=== PATIENT | male | born 2000 | race Caucasian/White ===

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

== ENCOUNTER 2023-02-22 11:17 | Emergency (ER) | payer BC, SELFPAY ==
[2023-02-22 11:18] VITALS: BP 134/91; PULSE 107; RESP 18; TEMP 35.9; O2SAT 95; BMI 24.0
--- NOTE | 2023-02-22 11:36 | EX.ED.DYSGE1 ---
HPI History of Present Illness Chief Complaint: Abd Pain Informant: patient Narrative Narrative: 22-year-old male presenting for an infection in his umbilicus. Started less than a week ago, seemingly spontaneously without injury or any other obvious etiology, redness and soreness in his bellybutton along with a white-green discharge. He attends the local college, he was seen at [facility] and started on Bactrim. He states today is the fourth day he has been on it, and he has seen improvement with less discharge now just a little yellow and crusty, and less redness/pain. No vomiting unless he chokes on pills he is trying to swallow, normal bowel movements. Never had any abdominal surgery. Patient is the only history provider; he states that he was sent here today to make sure that he does not have a strangulated hernia. [facility] Medical History Anxiety Depression History of hormone replacement therapy SVT (supraventricular tachycardia) Home Medications Abilify 12/30/20 [History Last Taken Unknown] Lamictal 12/30/20 [History Last Taken Unknown] TESTERONE 12/30/20 [History Last Taken Unknown] hydroxyzine HCl 12/30/20 [History Last Taken Unknown] Allergy/AdvReac Type Severity Reaction Status Date / Time No Known Allergies Allergy Verified 12/30/20 10:37 Surgical History History of bilateral breast reduction surgery Social History Smoking Status: Never smoker ROS ROS ED Constitutional Constitutional ED: Denies body ache(s), chills, fatigue or fever(s) Gastrointestinal Gastrointestinal: Reports abdominal pain; Denies nausea or vomiting Musculoskeletal Musculoskeletal: Denies back pain or neck pain Integumentary Reports abscess; Denies rash EXAM Physical Exam Const Vital Signs: 02/22/23 11:18 02/22/23 11:37 Temperature 96.7 F L Temperature Source Temporal Pulse Rate 107 H 83 Respiratory Rate 18 18 Blood Pressure 134/91 H 111/69 Blood Pressure Mean 105 83 Pulse Ox 95 96 Oxygen Delivery Method Room Air Positive well nourished and well developed General Appearance ED: well developed and NAD HEENT Reports moist mucous membranes Eyes PERRL and EOMs intact bilaterally Neck no lymphadenopathy and supple Resp normal respiratory effort and clear to auscultation bilaterally GI normal to inspection, nondistended, normoactive bowel sounds GI Narrative: Mildly tender at very small umbilical abscess deep within the umbilicus, approximately 1-2 mm in diameter, barely visible. This is mildly tender but there is no other area that is tenderness I am not able to express purulent material from the area. Rest of the abdomen is very benign. There is no significant surrounding cellulitis around the umbilicus. There is no hernia here. MDM MDM MDM Narrative Medical decision making narrative: Patient agrees that since he has been on Bactrim for the last 3 to 4 days, this has been improving as has the discharge. The small area of question deep within the umbilicus is extremely small. Since he actually has active discharge that is improving, my recommendation is to continue the antibiotic and avoid incising this area at this time. If he finishes the full 10-day course of Bactrim, which he is not even residential through, and he has persistence, I think reevaluating him at that time would be extremely reasonable and he is in agreement with all of that. There are no symptoms of strangulation, nor does have any findings of a hernia here. He states he had an ultrasound as an outpatient at [facility] yesterday, and is waiting on the results, I assume this was to evaluate for hernia. I do not have access to that study at this time. Discharge Plan Triage Chief Complaint: Abd Pain Other Complaint: Cellulitis Wound Check ED Provider: Ezra Hardy Dx/Rx/DC Orders Clinical Impression: Cutaneous abscess of umbilicus Instructions: ED Abscess Antibiotic Treatment Only Prescriptions: No Action Abilify Lamictal TESTERONE hydroxyzine HCl Primary Care Provider: Care Physician,No Primary Referrals: [facility] [Group of Physicians] - Care Physician,No Primary [Primary Care Provider] - Disposition Disposition: Home, Self Care Discharge Date/Time: 02/22/23 12:23
[2023-02-22 11:37] VITALS: BP 111/69; PULSE 83; RESP 18; O2SAT 96
== END 2023-02-22 12:23 | disposition home or self-care (01) ==
PROVIDERS: Emergency Provider Emergency Medicine; Visit Provider Emergency Medicine
DX: L02.216 Cutaneous abscess of umbilicus (principal)
CPT/HCPCS: 99283

== ENCOUNTER 2023-12-03 08:23 | Emergency (ER) | payer BC, SELFPAY ==
[2023-12-03 08:24] VITALS: BP 150/98; PULSE 98; RESP 18; TEMP 36.8; O2SAT 100
[2023-12-03 08:27] VITALS: BMI 22.1
--- NOTE | 2023-12-03 08:28 | ED.VIS.CHEST ---
HPI History of Present Illness Chief Complaint: Chest Pain [facility] Medical History Anxiety Depression History of hormone replacement therapy SVT (supraventricular tachycardia) Home Medications ?Medication ?Instructions ?Recorded ?Last Taken ?Type Abilify 12/30/20 Unknown History Lamictal 12/30/20 Unknown History TESTERONE 12/30/20 Unknown History hydroxyzine HCl 12/30/20 Unknown History Allergy/AdvReac Type Severity Reaction Status Date / Time No Known Allergies Allergy Verified 12/30/20 10:37 Surgical History History of bilateral breast reduction surgery Social History Smoking Status: Never smoker EXAM Physical Exam Const Vital Signs: 12/03/23 08:24 12/03/23 08:42 12/03/23 09:07 Temperature 98.3 F Temperature Source Oral Pulse Rate 98 Respiratory Rate 18 Respiratory Effort Normal Non-Labored Blood Pressure 150/98 H Blood Pressure Mean 115 Pulse Ox 100 Oxygen Delivery Method Room Air Room Air 12/03/23 11:31 Temperature Temperature Source Pulse Rate 86 Respiratory Rate 16 Respiratory Effort Blood Pressure 114/75 Blood Pressure Mean 88 Pulse Ox 96 Oxygen Delivery Method Room Air MDM MDM MDM Narrative Medical decision making narrative: HISTORY OF PRESENT ILLNESS: 23-year-old male presents with chest pain. Notes left-sided chest pain started yesterday morning. Patient notes pain is exertional, is worse with a deep breath, worse with lying flat. Patient endorses history of myocarditis after flu shot. Denies any recent vaccinations. Denies cough fever chills. Denies lower extremity swelling. Denies any VTE risk factors (the patient denies recent surgery in the last 4 weeks or immobilization in the last 3 days, denies previous diagnosis of DVT or PE, hemoptysis, unilateral leg swelling or malignancy with treatment the last 6 months or palliative. No estrogen use noted.) Endorses testosterone use for gender affirming care. Patient denies sudden onset of pain, no tearing sensation, no migratory symptoms, no new numbness, weakness or loss of sensation. Patient denies family history or personal history of Connective tissue disorders (Marfan's Syndrome, Gregory Danlos etc). Denies any volume loss such as diarrhea or vomiting. Denies any bleeding diathesis such as hemoptysis melena or hematochezia. REVIEW OF SYSTEMS: Pertinent positives: Chest pain Pertinent negatives: Syncope, leg swelling, fever, cough, vomiting, diarrhea PHYSICAL EXAM: Nursing triage notes reviewed, Vital signs reviewed Constitutional: please see mdm HENT: MMM Eyes: Pupils equal round and reactive to light, Extraocular muscles intact Neck: No stridor, no JVD, full neck ROM Lungs: Clear to auscultation, No wheezing or rales. No increased work of breathing, no conversational dyspnea, no accessory muscle use, no nasal flaring. No respiratory distress noted Heart: Regular rate and rhythm, No murmurs, No rubs and No gallops, 2+ distal pulses (radial, femoral, posterior tibial) in all extremities Abdomen: Soft, there is no tenderness, rigidity, rebound or guarding, no obvious peritoneal signs, no palpable pulsatile abdominal masses, no auscultated abdominal bruit : No CVAT Extremities: No edema Neuro: No focal neurological deficits, cranial nerves II through XII intact, 5/5 strength in all extremities. Intact sensation to light touch in all extremities, 2+ reflexes bilateral patella tendons. Normal gait. No ataxia. Skin: No rash or lesions noted MEDICAL DECISION MAKING: Chief Complaint: Chest pain External records reviewed: Imaging reviewed: Prior x-ray reviewed from 2020 showed a normal examination x-ray specifically no pneumothorax, normal heart size, normal aortic arch and descending thoracic aorta normal ribs Factors affecting care: anxiety SVT, depression, Social determinants of health: none History obtained from others: none Consults: none [facility] Narrative: Patient was initially hypertensive with blood pressure 150/98 otherwise, afebrile, nontoxic-appearing. I considered the following differential diagnosis: Pericarditis, ACS, arrhythmia, anemia, electrolyte disturbance, PE, aortic dissection. Patient was given aspirin for pain and morbidity mortality benefit ALL IMAGES (IF OBTAINED) HAVE BEEN PERSONALLY REVIEWED AND INTERPRETED BY MYSELF. EKG with normal sinus rhythm at a rate of 100, normal axis, normal intervals, no STEMI, no signs of right heart strain. No signs of pericarditis within normal MS interval, no diffuse ST segment elevation, no signs of WPW, ARVD or Brugada syndrome High-sensitivity troponin is negative, no evidence of myocardial ischemia x 2 D-dimer negative making VTE less likely CBC without leukocytosis, severe anemia, no thrombocytopenia. BMP without evidence of significant electrolyte abnormalities, no anion gap, no acute kidney injury. BNP within normal limit suggestive of no increased ventricular stretch, transmural pressure or heart failure The synthesis the patient's history, physical exam, labs images suggest no acute life-limiting etiology specifically no signs of VTE, ACS, arrhythmia, pneumothorax, I considered aortic dissection however the patient had a low risk for dissection given lack of pulse deficit, lack of focal neurologic deficit or lack of family personal history of connective tissue diseases. There is no evidence to suggest myocarditis with 2 negative troponins, lack of fever or signs of increased BNP. Patient is appropriate for discharge home with instruction to continue take aspirin. Will give close PCP follow-up for further outpatient testing including echocardiogram, Holter monitoring and/or stress testing if indicated. The patient and/or family, caregivers express understanding. The patient and/or family, caregivers agrees with the plan. Shared decision making: I will have a discussion with the patient and or visitors regarding risk/benefits of further testing or admission. They will be made aware of of the risk/benefits inherent in this decision they will be given the opportunity to voice understanding. Total critical care time today provided was at least 0 minutes. This excludes separately billable procedures. Critical care time (if documented) is secondary to the patient having high probability of clinically significant/life threatening deterioration in the patient's condition which required my urgent intervention. Impression: 1. Chest pain 2. History of SVT 3. History of myocarditis Dispo: Discharge home This note was generated with [employer] dictation software. It may contain incorrect words, spelling, and punctuation that were not noted in review of the chart prior to signing. Lab Data Labs: Laboratory Results - last 24 hr 12/03/23 12/03/23 08:55 11:09 WBC 7.1 RBC 5.13 Hgb 14.5 Hct 44.0 MCV 85.8 MCH 28.3 MCHC 33.0 RDW Std Deviation 40.3 RDW Coeff of [place] 12.9 Plt Count 248 MPV 8.9 Immature Gran % (Auto) 0.300 Neut % (Auto) 62.2 Lymph % (Auto) 24.1 [place] % (Auto) 10.4 H Eos % (Auto) 2.3 Baso % (Auto) 0.7 Absolute Neuts (auto) 4.4 Absolute Lymphs (auto) 1.71 Nucleated RBC % 0 D-Dimer Quant (PE/DVT) < 0.27 L Sodium 140 Potassium 4.0 Chloride 110 H Carbon Dioxide 26.0 Anion Gap 4 L BUN 17 Creatinine 0.78 Est GFR (MDRD) Af Amer 160 Est GFR (MDRD) Non-Af 132 BUN/Creatinine Ratio 21.7 H Glucose 91 Calcium 9.5 Troponin I High Sens < 3 L 4 B-Natriuretic Peptide 14.6 Radiography Diagnostic Testing: Clinical Impression(s) from Imaging Studies Chest X-Ray 12/03/23 09:15 IMPRESSION: No interval change and no acute or active cardiopulmonary disease. Electronically Signed: Fili Velasquez MD at 9:29 EDT , Discharge Plan Triage Chief Complaint: Chest Pain ED Provider: Bubba Barnhart Dx/Rx/DC Orders Prescriptions: No Action Abilify Lamictal TESTERONE hydroxyzine HCl Primary Care Provider: Elisa Hidalgo MD Referrals: Care Physician,No Primary [Non-Staff] - Print Language: Welsh
--- NOTE | 2023-12-03 08:47 | EKG12_ITS ---
Test Reason : Blood Pressure : / mmHG Vent. Rate : 100 BPM Atrial Rate : 100 BPM P-R Int : 138 ms QRS Dur : 078 ms QT Int : 322 ms P-R-T Axes : 057 059 025 degrees QTc Int : 415 ms Normal sinus rhythm Normal ECG Confirmed by ANDRES AGUILLON, VICKEY ([id number]), videotape editor ROMA BERMEO ([id number]) on 12/06/2023 6:35:04 AM Referred By: DESTINY Confirmed By:DOMINGO CAMPOS MD
[2023-12-03] MEDS: Aspirin 81 MG TAB.CHEW 324 MG PO (08:53)
[2023-12-03 09:03] LABS: Absolute Lymphocyte Count 1.71 X10^3/uL (0.83-4.51); Absolute Neutrophil Count 4.4 X10^3/uL (2.0-7.7); Basophil# 0.05 X10^3/uL; Basophil% 0.7 % (0-1); Eosinophil# 0.16 X10^3/uL; Eosinophils% 2.3 % (0-5); Hemoglobin 14.5 g/dL (13.0-16.5); Lymphocyte # 1.71 X10^3/ul (0.83-4.51); Lymphocyte % 24.1 % (19-41); Mean Corpuscular Hgb 28.3 pg (27.0-32.0); Mean Corpuscular Volume 85.8 fL (80-94); Mean Platelet Vol. 8.9 fl (6.2-12.0); Monocyte# 0.74 X10^3/uL; Monocyte% 10.4 % (0-10); NRBC Flagged by Analyzer 0 % (0-5); Neutrophil # 4.41 X10^3/uL (2.7-7.7); Neutrophil % 62.2 % (47-70); Platelet Count 248 K/mm3 (150-450); RBC Distribution Width CV 12.9 % (11.6-14.6); RBC Distribution Width SD 40.3 fl (35.1-43.9); Red Blood Count 5.13 M/mm3 (4.6-6.2); White Blood Count 7.1 K/mm3 (4.4-11.0)
[2023-12-03 09:14] LABS: D-Dimer Quantitative (DVT/PE) < 0.27 FEU/ug/m (0.27-0.49)
--- NOTE | 2023-12-03 09:15 | RAD_ITS ---
STUDY: X-RAY CHEST REASON FOR EXAM: Male, 23 years old. Chest pain. TECHNIQUE: Single frontal view of the chest. COMPARISON: December 30, 2020 FINDINGS: The lungs are clear and expanded. There is no demonstrated pleural abnormality. Normal size heart. Normal mediastinum and jordi. Normal visualized pulmonary arteries. Normal visualized aortic arch and descending thoracic aorta. No abnormality of the visualized soft tissue structures of the upper abdomen. RAD/Chest 1 View (Portable) IMPRESSION: No interval change and no acute or active cardiopulmonary disease. Electronically Signed: Fili Velasquez MD at 9:29 EDT ,
[2023-12-03 09:23] LABS: Anion Gap 4 (5-15); BUN 17 mg/dL (7-18); BUN/Creat Ratio 21.7 RATIO (10-20); Calcium,Total 9.5 mg/dL (8.5-10.1); Chloride 110 mmol/L (98-107); Creatinine, Serum 0.78 mg/dL (0.70-1.30); EST Glomerular Filtration Rate 132 mL/min (>60); Est Glom Filt Rate - Afr Amer 160 mL/min (>60); Glucose 91 mg/dL (74-106); Sodium Level 140 mmol/L (136-145); Troponin-I HS (w/2H Reflex) < 3 pg/mL (3.0-78.0)
[2023-12-03 09:59] LABS: BNP,B-Type NATRIURETIC PEPTIDE 14.6 pg/mL (0-100)
[2023-12-03 10:58] LABS: Reflex Troponin-HS? (from REC) Y
[2023-12-03 11:31] VITALS: BP 114/75; PULSE 86; RESP 16; O2SAT 96
[2023-12-03 11:38] LABS: Troponin-I HS 4 pg/mL (3.0-78.0)
[2023-12-03 12:15] VITALS: BP 114/75; PULSE 86; RESP 16; TEMP 36.7; O2SAT 96
== END 2023-12-03 12:16 | disposition home or self-care (01) ==
PROVIDERS: Emergency Provider Emergency Medicine; Visit Provider Emergency Medicine
DX: R07.9 Chest pain, unspecified (principal); Z86.79 Personal history of other diseases of the circulatory system
CPT/HCPCS: 71045; 80048; 83880; 84484; 85025; 85379; 93005; 99284; A4216